=== PATIENT | male | born 1970 | race Caucasian/White ===

== ENCOUNTER 2017-01-21 12:40 | Emergency (ER) | payer BC ==
[2017-01-21] MEDS ORDERED: Lidocaine Inj 1% 20 ML ONE (12:59)
[2017-01-21 13:00] VITALS: RESP 16; TEMP 97.2
[2017-01-21] MEDS ORDERED: Lidocaine 1% 10 MG/ML - 20 ML VIAL SUBCUT ONE (13:01)
[2017-01-21] MEDS ORDERED: DIPH,PERTUSS,TET(ADACEL) VAC/PF 0.5 ML (Tdap) IM ONE (13:26)
--- NOTE | 2017-01-22 06:35 | PDOC ---
Hand / Wrist Injury HPI - General Chief Complaint: Laceration / Wound Stated Complaint: LACERATION TO L THUMB Date Seen by Provider: 01/21/17 Time Seen by Provider: 12:46 Source: POSITIVE: Patient Exam Limitations: POSITIVE: No limitations Nurse's Notes Reviewed & Considered: Yes - History of Present Illness Initial Comments: The patient is a 46-year-old male. 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 He accidentally lacerated his left hand over the thenar eminence. He denies any sensory or motor symptoms. He states that the laceration bled vigorously after the injury. Have you received a tetanus shot in the past 10 years?: No Body Location Affected: REPORTS: Upper Extremity (L) Timing: REPORTS: Abrupt Duration: 1-3 hours (2 hours CASE PLANNER) Severity: Moderate Context: REPORTS: Laceration Location of Injury: REPORTS: Left, Hand Quality: REPORTS: "Pain" (Local pain at site of injury) Modifying Factors: REPORTS: Nothing Exacerbates Associated Symptoms: DENIES: Arm (R), Arm (L), Tingling Distally, Numbness Distally, Loss of Feeling, Loss of Power, Other Any Prior Injuries Related to Current Complaint?: No - Patient Home Medications Home Medications: Home Medications NK [No Home Medications Reported] 01/21/17 - Patient Allergies Allergies/Adverse Reactions: Allergies Allergy/AdvReac Type Severity Reaction Status Date / Time No Known Allergies Allergy Verified 01/21/17 12:52 Past Medical History - heen HEENT History: Denies History Cardiovascular History: Denies History Respiratory History: Denies History Gastrointestinal History: Denies History Genitourinary History: Denies History Endocrine History: Denies History Musculoskeletal History: Denies History Prosthesis or Implant: No Neurological History: Denies History Blood Disorders: Denies History Psychiatric History: Denies History Male Reproductive History: Denies History Cancer History: Denies History In Past Year Been Physically Harmed or Verbally Threatened: No History of MDRO: No Tobacco Use: Smoker Current Status Unknown Alcohol Use: Rarely Substance Use Type: None Previous Surgical History: No Significant Family History: No pertinent family hx Past Medical History Reviewed: Reviewed - No Changes ROS - Limitations ROS Limitations: No Limitations Constitution: REPORTS: Denies Symptoms Cardiovascular: REPORTS: Denies Cardiac Symptoms Respiratory: REPORTS: Denies Resp Symptoms Neurological: REPORTS: Denies Neuro Symptoms Gastrointestinal: REPORTS: Denies GI Symptoms Endocrine: REPORTS: Denies Symptoms Musculoskeletal: REPORTS: Recent Injury (Laceration thenar eminence left hand as above) Genitourinary: REPORTS: Denies Symptoms Eyes: REPORTS: Denies Symptoms ENT: REPORTS: Denies Symptoms Skin: REPORTS: Other (Laceration left hand as above) Lympathic: REPORTS: Denies Lympathic Symptoms Immunologic: POSITIVE: Denies Symptoms Psychiatric: POSITIVE: Denies Psych Symptoms Hand / Wrist Injury Exam - General Appearance General Appearance: POSITIVE: Alert, Cooperative, No Acute Distress. NEGATIVE: No Evidence of Trauma - Extremities Upper Extremity: POSITIVE: No Evidence of FB, Normal ROM, Soft Tissue Tenderness , Uninjured Above Wrist, See Diagram. NEGATIVE: Bony Tenderness, Swelling, Ecchymosis, Deformity, Complete Nail Injury, Partial Avulsion, Limited ROM, Snuff Box Position Tender, Axial Thumb Load Pain Neurovascular / Tendon: POSITIVE: Sensation Normal, Motor Normal, No Vascular Compromise, Tendon Function Normal Skin: POSITIVE: See Diagram (laceration thenar eminence left hand as above) - Neck / Back Neck/Back: POSITIVE: Normal Inspection, Non-Tender, Painless ROM - Respiratory / CVS Respiratory / CVS: POSITIVE: Chest Non Tender, No Ecchymosis, Breath Sounds Normal, No Respiratory Distress, Heart Sounds Normal, Regular Rate/Rhythm Peripheral Pulses: Radial (R): 2+, Radial (L): 2+ Images - Hands Hand: 1 - 3.5 cm laceration carrying down into the subcutaneous tissue Procedure - Laceration/Wound Repair Site of Lac/Wound:: Thenar eminence left hand Time of Suture Placement:: 12:55 Wound Length (cm): 3.5 Wound's Depth, Shape: Into subcutaneous tissue, Linear Distal CMS: Yes Skin Prep: Betadine Prep, Sterile Field Maintained, Sterile Drapes Applied, Sterile Dressing Applied, Other (Normal saline) Local Anesthesia Used - Indicate Amt Used in Comment: Lidocaine 1%: Yes Irrigated w/ Saline (mL): 10 Wound Explored: No foreign body removed Wound Debrided: Minimal Wound Repaired With: Sutures single layer Suture Size/Type: 5:0 Number of Sutures: 6 Layer Closure?: No Drain Placement: No Sterile Dressing Applied?: Yes Splint Applied?: No Procedure Note:: After local anesthesia with 1% lidocaine, the wound was sterilely cleansed with saline and Betadine and explored. No foreign bodies. No gross tendon, nerve or arterial involvement. The wound was then repaired with 5-0 nylon simple interrupted sutures. Hand / Wrist Injury Progress - Patient's Progress Pain Medication Addressed: POSITIVE: Yes (recommended Advil or Tylenol) School/Work Release Addressed: POSITIVE: Yes (return to work) Re-Examine Time: 13:25 Re-Examine Comment: Primary closure complete; T dap vaccination given. Status: POSITIVE: Improved, Re-Examined (primary closure complete) - Consult Counseled: POSITIVE: Patient, RE: DX, RE: Need for F/U Patient Care Time - Estimated PCT Patient Care Time (In Minutes): 35 Vital Signs - VS Reviewed Vital Signs Reviewed: Yes Discharge Clinical Impression: Laceration - injury Discharge Disposition: Discharged to Home Condition: Stable Patient Instructions Given at Discharge: Laceration (ED) Additional Instructions: Keep sutures clean. Keep dry for 24 hours. Do not submerge hand. Tylenol or Advil for pain. Return for suture removal in 12 days. Return any time at first sign of infection, or if condition worsens in any way. Follow Up With: NONE,NONE [Primary Care Provider] - (Instructions as above. Suture removal in 11 to 12 days.)
== END 2017-01-21 13:40 | disposition home or self-care (01) ==
LOC: ER 12:40
DX: S61.412A Laceration without foreign body of left hand, initial encounter (principal); W26.0XXA Contact with knife, initial encounter
CPT/HCPCS: 12002; 90471; 99282; J2001